=== PATIENT | male | born 1970 | race Caucasian/White ===

== ENCOUNTER 2018-01-18 17:40 | Emergency (ER) | payer OTHER ==
[~2018-01-18] VITALS: Ht 182.9 cm; Wt 113.4 kg
[~2018-01-18 17:40] MED LIST: EDTA
[2018-01-18] MEDS ORDERED: GENTAMICIN 0.1%15 G2 TOP (18:29)
[2018-01-18] MEDS ORDERED: KEFLEX500 M2 PO (18:29)
[2018-01-18 18:40] VITALS: BP 158/91
== END 2018-01-18 18:41 | disposition home or self-care (01) ==
LOC: M.ERS 17:40
DX: H10.32 Unspecified acute conjunctivitis, left eye (principal); L02.01 Cutaneous abscess of face; B96.89 Other specified bacterial agents as the cause of diseases classified elsewhere; F17.200 Nicotine dependence, unspecified, uncomplicated; Z88.0 Allergy status to penicillin